=== PATIENT | male | born 1980 | race Caucasian/White ===

== ENCOUNTER 2017-02-28 23:42 | Emergency (ER) | payer OTHER ==
[~2017-02-28] VITALS: Ht 182.9 cm; Wt 83.9 kg
[2017-02-28 23:42] VITALS: BP 137/87
--- NOTE | 2017-03-01 00:35 | PHYS DOC ---
General Chief Complaint: GROIN PAIN Stated Complaint: LEG PAIN Time Seen by MD: 23:59 Source: patient Exam Limitations: no limitations Problems: History of Present Illness Initial Comments Patient is a 36-year-old male who comes to the ED complaining of left groin pain. Patient states that for the past several days is noticed a tender area in his skin at the left groin. Today the area had been, larger and redder and more tender. Patient denied fever chills sweats body aches nausea vomiting chest pain or shortness of breath. Denied tick exposure or other trauma. No genitourinary symptoms. No pre-arrival treatment patient is normally healthy he is visiting locally he will return to [place] at the end of this month. Timing/Duration: getting worse, other Severity: moderate Modifying Factors: worse with movement, improves with rest Associated Symptoms: rash Allergies: Coded Allergies: No Known Drug Allergies (Unverified , 03/01/17) Past Medical History Medical History: no pertinent history Surgical History: noncontributory Psychosocial History: anxiety, depression Social History Smoker: non-smoker Alcohol: none Drugs: none Review of Systems Constitutional: denies chills, denies diaphoresis, denies fever, denies malaise Respiratory: denies cough, denies shortness of breath Cardiovascular: denies chest pain, denies palpitations Gastrointestinal: denies nausea, denies vomiting Musculoskeletal: see HPI Skin: see HPI Psychiatric/Neurological: denies headache, denies numbness, denies paresthesia Physical Exam General Appearance: WD/WN, no apparent distress Ear, Nose, Throat: hearing grossly normal, normal ENT inspection Neck: non-tender, supple Respiratory: normal breath sounds, no respiratory distress Gastrointestinal: non tender, soft Back: no CVA tenderness, no vertebral tenderness Extremities: no calf tenderness, pelvis stable, other (2 cm area of induration and erythema warmth and tenderness at the left groin. No skin breaks no discharge or vesicles. Underlying lymphadenopathy appears to be tender reactive. ) Neurologic/Psychiatric: neurology tech II-XII nml as tested, no motor/sensory deficits, alert, normal mood/affect, oriented x 3 Skin: warm/dry (left groin as above) Orders, Labs, Meds I discussed the need for antibiotic therapy as well as a follow-up appointment to recheck. Bactrim DS and Tylenol 3 starter pack given in the emergency room patient expressed agreement and understanding of the treatment plan. Departure Time of Disposition: 00:31 Disposition: 01 HOME, SELF-CARE Diagnosis: left groin cellulitis likely MRSA Condition: GOOD Patient Instructions: MRSA Overview Additional Instructions: Activity as tolerated. Warm compresses to area 4-6 times daily. OTC ibuprofen as needed. Rx: bactrim ds A Tylenol #3 start pack was sent home with you. Take 1 tablet every 6 hours with food for severe breakthru pain. As you are from out of town, ED staff will provide you a list of local doctors who take walk-in appointments. Follow up with a doctor for recheck in 10-14 days. Return to ED with new or changing symptoms. ADDIE MARTINEZ DO Mar 01, 2017 00:35
[2017-03-01] MEDS ORDERED: SMZ/TMP 800/160MG TABLET. PO ONE ×2 (00:45→00:59)
[2017-03-01] MEDS ORDERED: ACETAMINOPHEN/CODEINE 300/30MG 4TABLET STARTPACK. PO ONE ×2 (00:45→00:58)
== END 2017-03-01 01:01 | disposition home or self-care (01) ==
LOC: EDSEX 23:42 → ER 23:42
DX: L03.314 Cellulitis of groin (principal)
CPT/HCPCS: 99283